=== PATIENT | male | born 1975 | race Caucasian/White ===

== ENCOUNTER 2023-05-09 14:50 | Emergency (ER) | payer BC ==
[~2023-05-09] VITALS: Ht 177.8 cm; Wt 106.6 kg
[~2023-05-09 14:50] MED LIST: LIDOINT TP; METH-634 PO; NAPR-1172 PO
[2023-05-09 14:54] VITALS: BP_SYST 139
--- NOTE | 2023-05-09 16:30 | NUR ---
MD DR KENDALL AT BEDSIDE
--- NOTE | 2023-05-09 17:00 | NUR ---
Placed in room 08 . Placed on nuclear monitoring technician, blood pressure machine and pulse oximeter. To gown for exam. Side rails up. Report given to JOSE ANTONIO SCHWARTZ
--- NOTE | 2023-05-09 17:07 | NUR ---
pt bib awake and alert aox4, no sob. pt c/o anxiety AND PALPITATION. PT DENIES PAIN, N/V/D. PT DENIES HX AND SX.
--- NOTE | 2023-05-09 17:09 | NUR ---
Patient given written and verbal discharge instructions and verbalizes understanding. ER MD DR KENDALL discussed with patient the results and treatment provided. Patient in stable condition. ID arm band removed. Patient educated on pain management and to follow up with PMD. Pain Scale 0/10. Opportunity for questions provided and answered. Medication side effect fact sheet provided.
[2023-05-09 17:11] VITALS: BP_SYST 135
== END 2023-05-09 17:11 | disposition home or self-care (01) ==
LOC: SED 14:50
DX: F41.0 Panic disorder [episodic paroxysmal anxiety] (principal); R00.2 Palpitations; R06.4 Hyperventilation; R20.0 Anesthesia of skin; R20.2 Paresthesia of skin; Z72.0 Tobacco use; Z79.899 Other long term (current) drug therapy
CPT/HCPCS: 93005; 99283

== ENCOUNTER 2023-11-19 12:12 | Emergency (ER) | payer BC ==
[~2023-11-19] VITALS: Ht 152.4 cm; Wt 108.9 kg
[~2023-11-19 12:12] MED LIST changes: +IBUP-1971 PO; +TRAM50TA2 PO
[2023-11-19 12:13] VITALS: BP_SYST 140; PULSE 83; RESP 18; TEMP 97; O2SAT 98
[2023-11-19] MEDS ORDERED: IBUPROFEN 800 MG TABLET PO ONE (15:00)
[2023-11-19] MEDS ORDERED: TETRACAINE HCL/PF 0.5% OPHTHALMIC DROPS 4 ML OP ONE (15:00)
[2023-11-19] MEDS ORDERED: IBUPROFEN 800 MG TABLET ONE (17:07)
[2023-11-19] MEDS ORDERED: GENT5DRO22 LEFT EYE (17:16)
[2023-11-19] MEDS ORDERED: NAPH15DR52 LEFT EYE (17:16)
[2023-11-19 18:10] VITALS: BP_SYST 140; PULSE 83; RESP 18; TEMP 97; O2SAT 98
== END 2023-11-19 18:08 | disposition home or self-care (01) ==
LOC: SED 12:12
DX: H10.212 Acute toxic conjunctivitis, left eye (principal); Z79.899 Other long term (current) drug therapy
CPT/HCPCS: 99283